=== PATIENT | female | born 1965 | race Caucasian/White ===

== ENCOUNTER → 2018-06-06 | Outpatient (CLI) | payer BC ==
--- NOTE | 2018-06-06 11:12 | KCIC ---
EXAM: Bilateral screening mammogram. HISTORY: 53-year-old female presents for screening mammography. TECHNIQUE: Full-field digital craniocaudal and mediolateral oblique views of both breasts are obtained for evaluation. Computer aided detection with [employer] software version 9.3 was applied. COMPARISON: There is no prior study within 20 years for comparison. This exam serves as a new baseline mammogram. BREAST PARENCHYMAL DENSITY: Level B - Scattered fibroglandular densities. FINDINGS: There is a 5 mm circumscribed nodular density within the 9:00 position of the left breast approximately 3.6 cm from the nipple. There is asymmetry within the central right breast in the mediolateral oblique projection. The absence of a correlate on the craniocaudal projection confirms summation artifact. There is no architectural distortion or suspicious calcification within either breast. IMPRESSION: BI-RADS Category 0: Additional imaging needed. RECOMMENDATION: Further evaluation with a left breast sonogram targeted to the 9:00 position is recommended to assess a small nodular density in this location. If your mammogram demonstrates that you have dense breast tissue, which could hide abnormalities, and if you have other risk factors for breast cancer that have been identified, you might benefit from supplemental screening tests that may be suggested by your ordering physician. Dense breast tissue, in and of itself, is a relatively common condition. This information is not provided to cause undue concern, but rather to raise your awareness and to promote discussion with your physician regarding the presence of other risk factors, in addition to dense breast tissue. A report of your mammography results will be sent to you and your physician. You should contact your physician if you have any questions or concerns regarding this report. Mammography is a sensitive method for finding small breast cancers, but it does not detect them all and is not a substitute for careful clinical examination. A negative mammogram does not negate a clinically suspicious finding and should not result in delay in biopsying a clinically suspicious abnormality. PQRS compliance statement - Patient information was entered into a reminder system with a target due date for the next mammogram. "Our facility is accredited by the [employer] Mammography [employer]." Electronically signed by: Lashaun Stevens MD (06/06/2018 11:08 AM) [id number]
== END | disposition home or self-care (01) ==
LOC: KCIC MAMMO 09:51
PROVIDERS: ATTEND Obstetrics & Gynecology
DX: Z12.31 Encounter for screening mammogram for malignant neoplasm of breast (principal)
CPT/HCPCS: 77067

== ENCOUNTER → 2018-06-19 | Outpatient (CLI) | payer BC ==
--- NOTE | 2018-06-19 10:37 | KCIC ---
Left breast ultrasound: Reason for examination: Nodular density on screening mammogram. Comparison is made to mammographic exam dated 06/06/2018. Ultrasound examination was performed in the area of mammographic concern at the 9:00 position and in the left axilla. At the 9:00 position 3 cm from the nipple, there is a small hypoechoic 4 mm circumscribed lesion with some mild posterior acoustic enhancement. This may represent a complicated cyst. No other cystic or solid lesions are seen. No abnormal appearing lymph nodes are seen in the axilla. IMPRESSION: 4 mm hypoechoic circumscribed lesion at the 9:00 position which may represent a complicated cyst. Recommend reevaluation with ultrasound in 6 months. BI-RADS Category 3: Probably Benign. "Our facility is accredited by the [employer] Mammography [employer]." This patient's information has been entered into a reminder system for the patient to be notified with the results of her examination and a target date for the next mammogram. Electronically signed by: Chelsea Lam MD (06/19/2018 10:33 AM) [id number]
== END | disposition home or self-care (01) ==
LOC: KCIC US 09:29
PROVIDERS: ATTEND Obstetrics & Gynecology
DX: R92.8 Other abnormal and inconclusive findings on diagnostic imaging of breast (principal); N64.59 Other signs and symptoms in breast
CPT/HCPCS: 76641